=== PATIENT | female | born 1985 | race Caucasian/White ===

== ENCOUNTER 2018-07-04 22:26 | Emergency (ER) | payer BC ==
[~2018-07-04] VITALS: Ht 157.5 cm; Wt 102.4 kg
[2018-07-04 22:31] VITALS: BP 125/85
[2018-07-04] MEDS ORDERED: ULTRAM50 MG PO (23:38)
[2018-07-04] MEDS ORDERED: MOTRIN800 MG PO (23:38)
== END 2018-07-05 00:08 | disposition home or self-care (01) ==
LOC: EME 22:26
DX: S90.112A Contusion of left great toe without damage to nail, initial encounter (principal); W23.0XXA Caught, crushed, jammed, or pinched between moving objects, initial encounter
CPT/HCPCS: 73660; 99281; 99283